=== PATIENT | male | born 1960 | race Caucasian/White ===

== ENCOUNTER → 2018-02-08 | Outpatient (CLI) | payer BC | LOC: CAT 09:17 | DX: J32.0 Chronic maxillary sinusitis (principal); H57.12 Ocular pain, left eye ==

== ENCOUNTER → 2020-03-22 | Outpatient (CLI) | payer BC ==
[~2020-03-22] MED LIST: ALEVE220 MG PO; B COMPLEX1 EACH PO; TUMS200 MG PO; VITAMIN C1000 MG PO
== END ==
LOC: LAB 11:58
PROVIDERS: ATTEND Surgery
DX: Z20.828 Contact with and (suspected) exposure to other viral communicable diseases (principal)

== ENCOUNTER → 2020-03-27 | Day surgery (SDC) | payer BC ==
[~2020-03-27] VITALS: Ht 182.9 cm; Wt 102.1 kg
[~2020-03-27] MED LIST changes: +ACETAMINOPHEN325 M1 PO; +IBUPROFEN 200200 M1 PO; +MIRALAX17 GM PO; +OXYCODONE HCL 55 MG PO; +SENNA-TIME S T1 EACH PO
[2020-03-27 07:33] VITALS: BP 113/74
[2020-03-27 09:30] VITALS: BP 113/74
== END | disposition home or self-care (01) ==
LOC: OR 06:06
PROVIDERS: ATTEND Surgery
DX: K40.90 Unilateral inguinal hernia, without obstruction or gangrene, not specified as recurrent (principal); F17.210 Nicotine dependence, cigarettes, uncomplicated; Z98.890 Other specified postprocedural states; Z79.899 Other long term (current) drug therapy
CPT/HCPCS: 50010; 50101; 50411; 50555; 50558; 50854; 50984; 52265; 52266; 53307; 53310; 54022; 54118; 56462; 56525; 56526; 62110; 62900; 70005